=== PATIENT | male | born 1990 | race Caucasian/White ===

== ENCOUNTER 2023-12-26 13:23 | Emergency (ER) | payer BC ==
[2023-12-26] MEDS ORDERED: KETAMINE 100 MG/ML (5ML VIAL) ONE (14:51)
== END 2023-12-26 17:04 | disposition home or self-care (01) ==
LOC: EDBD 13:23 → ERS 13:23
DX: S82.832A Other fracture of upper and lower end of left fibula, initial encounter for closed fracture (principal); S93.05XA Dislocation of left ankle joint, initial encounter; V00.131A Fall from skateboard, initial encounter; Y93.51 Activity, roller skating (inline) and skateboarding
CPT/HCPCS: 27840; 96374; 99152; 99153